=== PATIENT | female | born 1955 | race Two or more races ===

== ENCOUNTER 2020-11-20 07:52 | Emergency (ER) | payer OTHER ==
[~2020-11-20] VITALS: Ht 157.5 cm; Wt 65.8 kg
[2020-11-20] MEDS ORDERED: NAPROXEN500 MG PO (08:10)
[2020-11-20] MEDS ORDERED: FEXMID7.5 MG (08:10)
[2020-11-20] MEDS ORDERED: CLONIDINE HCL0.2 MG PO (08:11)
== END 2020-11-20 15:41 | disposition home or self-care (01) ==
LOC: ER 07:52
DX: R10.10 Upper abdominal pain, unspecified (principal)

== ENCOUNTER → 2021-04-20 | Emergency (ER) | payer OTHER ==
[~2021-04-20] MED LIST: CLONIDINE HCL0.2 MG PO; FEXMID7.5 MG; NAPROXEN500 MG PO
== END | disposition left against medical advice (07) ==
LOC: ER 10:40
DX: Z53.21 Procedure and treatment not carried out due to patient leaving prior to being seen by health care provider (principal)

== ENCOUNTER → 2023-05-31 13:58 | Outpatient (CLI) | payer OTHER ==
[2023-05-31 15:08] LABS: HEMATOCRIT 36.6 % (36.0-45.00); HEMOGLOBIN 12.2 g/dL (12.0-15.00); MEAN CELL VOLUME 85.2 fL (80.00-100.00); MEAN CORPUSCULAR HEMOGLOBIN 28.3 pg (27.00-32.0); MEAN CORPUSCULAR HGB CONC 33.3 g/dl (32.0-36.0); PLATELET COUNT 238 K/uL (150-450)
[2023-05-31 15:11] LABS: PH,URINE 5.5 (5.0-8.0); URINE APPEARANCE Cloudy; URINE BILIRRUBIN Negative (NEGATIVE); URINE BLOOD Negative; URINE COLOR Yellow; URINE GLUCOSE Negative (NEGATIVE); URINE LEUKOCYTE Moderate; URINE NITRATE Positive; URINE PROTEIN Negative (NEGATIVE); URINE UROBILINOGEN 0.2 E.U./dl
[2023-05-31 15:12] LABS: URINE EPITHELIAL CELLS 28.1 uL (0.0-38.8); URINE RBC 23.5 uL (0.0-20.8); URINE WBC 146.3 uL (0.0-23.2)
[2023-05-31 15:38] LABS: URINE BACTERIA > 9821.5 uL (0.0-1933); URINE MUCUS SCANT
[2023-05-31 15:41] LABS: ALBUMIN 3.5 gm/dL (3.4-5.0); BILIRUBIN TOTAL 0.39 mg/dL (0.3-1.2); CALCIUM 9.5 mg/dL (8.5-10.1); CHOL HDL RATIO 2.7 (0-5.0); CREATININE SERUM 0.84 mg/dL (0.55-1.02); FREE TRIODOTIRONINE 2.28 pg/ml (2.18-3.98); GFR 68.04; GLOBULINA 3.3 G/DL (2.4-3.5); POTASSIUM 4.23 mEq/L (3.5-5.1); T4 FREE 1.03 NG/ML (0.76-1.46); TOTAL PROTEIN 6.8 gm/dL (6.4-8.2); TSH 1.69 uIU/mL (0.358-3.74)
[2023-05-31 15:45] LABS: C-REACTIVE PROTEIN 1.85 MG/DL (0.00-0.29)
== END | disposition home or self-care (01) ==
LOC: LAB 13:58
PROVIDERS: ATTEND Specialist
DX: M00.80 Arthritis due to other bacteria, unspecified joint (principal); Z13.220 Encounter for screening for lipoid disorders; E11.69 Type 2 diabetes mellitus with other specified complication; E03.8 Other specified hypothyroidism; D64.89 Other specified anemias; N25.81 Secondary hyperparathyroidism of renal origin; N39.9 Disorder of urinary system, unspecified; R19.5 Other fecal abnormalities; E11.21 Type 2 diabetes mellitus with diabetic nephropathy

== ENCOUNTER 2023-06-08 13:39 | Outpatient (CLI) | payer OTHER ==
[2023-06-08 15:59] LABS: ob POSITIVE (NEGATIVE)
== END 2023-06-08 13:40 | disposition home or self-care (01) ==
LOC: LAB 13:39
PROVIDERS: ATTEND Specialist
DX: E11.69 Type 2 diabetes mellitus with other specified complication (principal); Z13.220 Encounter for screening for lipoid disorders; E03.8 Other specified hypothyroidism; D64.89 Other specified anemias; R19.5 Other fecal abnormalities; N25.81 Secondary hyperparathyroidism of renal origin; N39.9 Disorder of urinary system, unspecified; R07.9 Chest pain, unspecified; E11.21 Type 2 diabetes mellitus with diabetic nephropathy

== ENCOUNTER 2023-08-30 11:54 | Outpatient (CLI) | payer OTHER ==
[2023-08-30 12:56] LABS: HEMATOCRIT 37.1 % (36.0-45.00); HEMOGLOBIN 12.5 g/dL (12.0-15.00); MEAN CELL VOLUME 89.1 fL (80.00-100.00); MEAN CORPUSCULAR HGB CONC 33.6 g/dl (32.0-36.0); PLATELET COUNT 250 K/uL (150-450); RED BLOOD COUNT 4.16 M/uL (4.00-6.00); RED CELL DISTRIBUTION WIDTH 14.8 % (11.5-14.5)
[2023-08-30 13:25] LABS: ALBUMIN 3.5 gm/dL (3.4-5.0); BILIRUBIN TOTAL 0.28 mg/dL (0.3-1.2); CALCIUM 9.4 mg/dL (8.5-10.1); CHOL HDL RATIO 2.3 (0-5.0); CREATININE SERUM 0.81 mg/dL (0.55-1.02); FREE TRIODOTIRONINE 2.5 pg/ml (2.18-3.98); GFR 70.74; GLOBULINA 3.3 G/DL (2.4-3.5); POTASSIUM 4.22 mEq/L (3.5-5.1); T4 FREE 0.98 NG/ML (0.76-1.46); TOTAL PROTEIN 6.8 gm/dL (6.4-8.2); TSH 1.65 uIU/mL (0.358-3.74)
== END 2023-08-30 12:01 | disposition home or self-care (01) ==
LOC: LAB 11:54
PROVIDERS: ATTEND Specialist
DX: N25.81 Secondary hyperparathyroidism of renal origin (principal); E03.8 Other specified hypothyroidism; E11.69 Type 2 diabetes mellitus with other specified complication; E11.21 Type 2 diabetes mellitus with diabetic nephropathy; D64.89 Other specified anemias; N39.9 Disorder of urinary system, unspecified; Z13.220 Encounter for screening for lipoid disorders

== ENCOUNTER 2024-03-06 12:44 | Outpatient (CLI) | payer OTHER ==
[2024-03-06 13:19] LABS: HEMATOCRIT 37.6 % (36.0-45.00); HEMOGLOBIN 12.8 g/dL (12.0-15.00); MEAN CORPUSCULAR HEMOGLOBIN 28.9 pg (27.00-32.0); PLATELET COUNT 210 K/uL (150-450); RED BLOOD COUNT 4.42 M/uL (4.00-6.00); RED CELL DISTRIBUTION WIDTH 15.1 % (11.5-14.5)
[2024-03-06 14:25] LABS: ALBUMIN 3.4 gm/dL (3.4-5.0); BILIRUBIN TOTAL 0.45 mg/dL (0.3-1.2); CALCIUM 9.3 mg/dL (8.5-10.1); CHOL HDL RATIO 2.6 (0-5.0); CREATININE SERUM 1.07 mg/dL (0.55-1.02); GFR 51.3; GLOBULINA 3.4 G/DL (2.4-3.5); POTASSIUM 3.84 mEq/L (3.5-5.1); TOTAL PROTEIN 6.8 gm/dL (6.4-8.2)
== END 2024-03-06 12:49 | disposition home or self-care (01) ==
LOC: LAB 12:44
PROVIDERS: ATTEND Internal Medicine
DX: R10.9 Unspecified abdominal pain (principal); E78.5 Hyperlipidemia, unspecified; R80.9 Proteinuria, unspecified; R73.09 Other abnormal glucose

== ENCOUNTER 2024-06-04 13:50 | Outpatient (CLI) | payer OTHER | END 2024-06-04 13:54 | disposition home or self-care (01) | LOC: RAD 13:50 | PROVIDERS: ATTEND Specialist | DX: J45.998 Other asthma (principal) ==

== ENCOUNTER 2024-08-11 10:40 | Outpatient (CLI) | payer OTHER ==
[2024-08-11 11:44] LABS: BASO % 0.6 % (0.1-1.2); EOS # 0.26 (0.04-0.54); EOS % 2.7 % (0.7-7.0); HEMATOCRIT 36.7 % (34.1-44.9); HEMOGLOBIN 11.9 g/dL (11.2-15.7); LYMPH # 2.73 (1.18-3.74); LYMPH % 28.1 % (19.3-53.1); MEAN CORPUSCULAR HEMOGLOBIN 27.4 pg (25.6-32.2); MONO # 0.53 (0.24-0.82); MONO % 5.5 % (4.7-12.5); NEUT # 6.07 (1.56-6.13); NEUT % 62.5 % (34.0-71.1); PLATELET COUNT 277 K/uL (163-369); RED BLOOD COUNT 4.35 M/uL (3.93-5.22); RED CELL DISTRIBUTION WIDTH 13.8 % (11.6-14.4)
[2024-08-11 12:36] LABS: ALBUMIN 3.4 gm/dL (3.4-5.0); BILIRUBIN TOTAL 0.25 mg/dL (0.3-1.2); CREATININE SERUM 0.93 mg/dL (0.55-1.02); FREE TRIODOTIRONINE 2.17 pg/ml (2.18-3.98); GFR 60.13; GLOBULINA 3.2 G/DL (2.4-3.5); POTASSIUM 3.99 mEq/L (3.5-5.1); T4 FREE 0.99 NG/ML (0.76-1.46); TOTAL PROTEIN 6.6 gm/dL (6.4-8.2); TSH 3.24 uIU/mL (0.358-3.74)
== END 2024-08-11 10:47 | disposition home or self-care (01) ==
LOC: LAB 10:40
PROVIDERS: ATTEND Specialist
DX: E03.9 Hypothyroidism, unspecified (principal); E11.21 Type 2 diabetes mellitus with diabetic nephropathy; N39.9 Disorder of urinary system, unspecified; E78.2 Mixed hyperlipidemia; E11.65 Type 2 diabetes mellitus with hyperglycemia; Z12.11 Encounter for screening for malignant neoplasm of colon; D64.9 Anemia, unspecified; E72.11 Homocystinuria; N25.81 Secondary hyperparathyroidism of renal origin; N39.0 Urinary tract infection, site not specified; E55.9 Vitamin D deficiency, unspecified

== ENCOUNTER 2024-08-17 15:01 | Outpatient (CLI) | payer OTHER ==
[2024-08-17 15:24] LABS: ob NEGATIVE (NEGATIVE)
== END 2024-08-17 15:03 | disposition home or self-care (01) ==
LOC: LAB 15:01
PROVIDERS: ATTEND Specialist
DX: E72.11 Homocystinuria (principal); E03.9 Hypothyroidism, unspecified; E11.21 Type 2 diabetes mellitus with diabetic nephropathy; N39.9 Disorder of urinary system, unspecified; E78.2 Mixed hyperlipidemia; E11.65 Type 2 diabetes mellitus with hyperglycemia; Z12.11 Encounter for screening for malignant neoplasm of colon; D64.9 Anemia, unspecified; N25.81 Secondary hyperparathyroidism of renal origin; N39.0 Urinary tract infection, site not specified; E55.9 Vitamin D deficiency, unspecified